=== PATIENT | male | born 1970 | race African-American/Black ===

== ENCOUNTER 2019-01-24 15:06 | Emergency (ER) | payer BC ==
[2019-01-24 15:13] VITALS: BP 177/72
--- NOTE | 2019-01-24 15:38 | ER Document Report ---
HPI - HPI Time Seen by Provider: 01/24/19 15:21 Pain Level: 2 Context: Patient is a 48-year-old male with a history of congestive heart failure, type 2 diabetes, hypertension, high cholesterol, stage III kidney disease, acid reflux who presents to the emergency department with a chief complaint of sore throat and cough. Patient reports for 4 days he has had a minor sore throat that is intermittent. Patient reports yesterday he did develop a productive cough with brown sputum. Patient denies blood in his sputum. Patient denies runny nose or ear pain. Patient reports some sinus pressure. Patient reports intermittent headache. Patient reports his voice sounds hoarse. Patient reports he has not taken any medications [id number] for this. Patient reports he attempted to go to work today but then felt very achy all over. Patient reports he does have high blood pressure is not taking any of his blood pressure medications today. Patient denies fever. - REPRODUCTIVE Reproductive: DENIES: : Past Medical History - General Information source: Patient - Social History Smoking Status: Never Smoker Frequency of alcohol use: None Drug Abuse: None Lives with: Family Family History: None Patient has suicidal ideation: No Patient has homicidal ideation: No - Past Medical History Cardiac Medical History: Reports: Hx Congestive Heart Failure, Hx Hypercholesterolemia, Hx Hypertension Pulmonary Medical History: Reports: None EENT Medical History: Reports: None Neurological Medical History: Reports: Hx Migraine Endocrine Medical History: Reports: Hx Diabetes Mellitus Type 2 Renal/ Medical History: Reports: Hx Renal Insufficiency Malignancy Medical History: Reports None GI Medical History: Reports: Hx Gastroesophageal Reflux Disease Musculoskeletal Medical History: Reports None Skin Medical History: Reports None Psychiatric Medical History: Reports: Hx Bipolar Disorder Traumatic Medical History: Reports: None Infectious Medical History: Reports: None Vertical Provider Document - CONSTITUTIONAL Agree With Documented VS: Yes Exam Limitations: No Limitations General Appearance: No Apparent Distress - HEENT HEENT: Atraumatic, Normal ENT Exam, Normocephalic, PERRLA Notes: Mild tenderness noted to the maxillary and frontal sinuses. Patient's TMs bilaterally are unremarkable without erythema, edema. I was able to easily visualize the TM the landmarks. There is no fluid behind the ear. Patient's airway is patent, no tonsillar hypertrophy. Uvula is midline. Patient does have edematous turbinates bilaterally. No rhinorrhea. - NECK Neck: Normal Inspection Notes: No lymphadenopathy. - RESPIRATORY Respiratory: Breath Sounds Normal, No Respiratory Distress - CARDIOVASCULAR Cardiovascular: Regular Rate, Regular Rhythm - GI/ABDOMEN Gastrointestinal: Abdomen Soft, Abdomen Non-Tender - BACK Back: Normal Inspection - NEURO Level of Consciousness: Awake, Alert, Appropriate - DERM Integumentary: Warm, Dry, No Rash Course - Re-evaluation Re-evalutation: 01/24/19 15:41 Patient is nontoxic-appearing. Patient is not hypoxic or tachycardic or febr ile. Patient is hypertensive at 177/72. Patient reports he has not taken his blood pressure medication today. I informed him when he gets home to take his blood pressure medications. I did inform him that swbu-wpy-snnwgop decongestants do have a tendency to elevate the blood pressure and he does need to take precaution with these medications. - Vital Signs Vital signs: Temp Pulse Resp BP Pulse Ox 97.6 F 91 19 177/72 H 96 01/24/19 15:11 01/24/19 15:11 01/24/19 15:11 01/24/19 15:11 01/24/19 15:11 Discharge - Discharge Clinical Impression: Laryngitis, URI with cough and congestion Condition: Stable Disposition: HOME, SELF-CARE Additional Instructions: Today you are seen in the emergency department for an upper respiratory infection. At this time your physical examination was reassuring and your symptoms are consistent with a viral infection. You do not require an oral antibiotic. You will need to follow-up with your primary care physician for recheck. Please return emergency department if you develop high fever, symptoms that last longer than 10 to 14 days, shortness of breath, severe pain, productive cough, difficulty breathing or swallowing or any other concerning signs or symptoms. You can use fxhx-zuz-tapwnda saline nasal flushes You can also use an cwwt-rvw-fusgced Zyrtec which is an antihistamine. This is usually taken to treat seasonal allergies but may also help your symptoms. Be very careful with certain decongestants as this can elevate your blood pressure. Your blood pressure was elevated today. You have reported not taking your blood pressure medication today. Please take this when you get home. Please drink plenty of fluids to stay hydrated. Upper Respiratory Illness You have a viral infection of the respiratory passages -- a "cold." This common infection causes nasal congestion, drainage, and often sore throat and cough. It is caused by a virus and is highly contagious. The disease usually lasts a week or more, though the worst symptoms are usually over in 3 or 4 days. There is no "cure" for the viral infection -- it must run its course. If there is a complication, such as bacterial infection in the nose, sinuses, middle ear, or bronchial tubes, antibiotics may be required, but antibiotics won't affect the virus. If you smoke, you should STOP!! Drink plenty of fluids. A humidifier may help. An expectorant medication or decongestant may make you more comfortable. Use acetaminophen or ibuprofen for fever or aches. See the doctor if fever persists over two or three days, if there is any significant worsening of your symptoms, or if you simply fail to improve as expected. Laryngitis You have laryngitis. This is an inflammation of the vocal cords which leads to inability to speak normally. Any irritation to the airway can cause laryngitis. Causes include virus infection, smoke inhalation, allergy, or even trauma due to excessive talking or shouting. Rest your voice. Any vibration of the vocal cords increases and prolongs the swelling. Humidity is helpful, especially cool mist. Avoid dust, chemical fumes, and smoke. Avoid decongestants and antihistamines -- these will make you worse. You can expect to recover completely in a few days. See the physician if new symptoms develop, such as high fever, productive cough, shortness of breath, or if you do not improve within a few days. Forms: Return to Work
== END 2019-01-24 15:58 | disposition home or self-care (01) ==
LOC: EDBD → ER 15:06
DX: J04.0 Acute laryngitis (principal); J06.9 Acute upper respiratory infection, unspecified; R05 Cough; R09.81 Nasal congestion; J02.9 Acute pharyngitis, unspecified; R51 Headache; I13.0 Hypertensive heart and chronic kidney disease with heart failure and stage 1 through stage 4 chronic kidney disease, or unspecified chronic kidney disease; E11.22 Type 2 diabetes mellitus with diabetic chronic kidney disease; N18.9 Chronic kidney disease, unspecified; I50.9 Heart failure, unspecified

== ENCOUNTER 2019-03-21 21:06 | Emergency (ER) | payer BC ==
--- NOTE | 2019-03-21 21:42 | ER Document Report ---
ED Medical Screen (RME) - General Chief Complaint: Shortness Of Breath Stated Complaint: CHEST PAIN Time Seen by Provider: 03/21/19 21:36 Mode of Arrival: Wheelchair Information source: Patient Notes: 49-year-old male with history of cardiac disease that was just discharged from [facility] presents with shortness of breath chest tightness left arm pain and vomiting. Reports symptoms started earlier today when he came to [place] to visit his girlfriend. He reports he was so weak and short of breath he could not get out of his car and he vomited outside the parking lot. I have greeted and performed a rapid initial assessment of this patient. A comprehensive ED assessment and evaluation of the patient, analysis of test results and completion of the medical decision making process will be conducted by additional ED providers. Dictation of this chart was performed using voice recognition software; therefore, there may be some unintended grammatical errors. TRAVEL OUTSIDE OF THE [place] IN LAST 30 DAYS: No - Related Data Allergies/Adverse Reactions: levofloxacin [From [employer]] Adverse Reaction (Verified 03/21/19 21:28) joint pain Home Medications: BiDil 20-37.5mg TID. Aspirin 81mg. Carvedilol 12.5mg BID. Colchicine 0.6mg PRN. Farxiga 10mg Daily. Gabapentin 100mg TID. Metolazone 5mg BID. Pancrelipase BID with meals. Protonix 20mg once. Topimarate 50mg BID Past Medical History - Past Medical History Cardiac Medical History: Reports: Hx Congestive Heart Failure, Hx Hypercholesterolemia, Hx Hypertension Neurological Medical History: Reports: Hx Migraine Endocrine Medical History: Reports: Hx Diabetes Mellitus Type 2 Renal/ Medical History: Reports: Hx Renal Insufficiency GI Medical History: Reports: Hx Gastroesophageal Reflux Disease Psychiatric Medical History: Reports: Hx Bipolar Disorder Physical Exam - Vital signs Vitals: Temp Pulse Resp BP Pulse Ox 97.8 F 101 H 22 H 132/56 H 96 03/21/19 21:22 03/21/19 21:22 03/21/19 21:22 03/21/19 21:22 03/21/19 21:22 Course - Vital Signs Vital signs: Temp Pulse Resp BP Pulse Ox 97.8 F 101 H 22 H 132/56 H 96 03/21/19 21:28 03/21/19 21:22 03/21/19 21:28 03/21/19 21:22 03/21/19 21:28
[2019-03-21 22:00] LABS: ABSOLUTE EOSINOPHILS # (AUTO) 0.1 10^3/uL (0.0-0.6); ABSOLUTE LYMPHOCYTES (AUTO) 2.9 10^3/uL (0.5-4.7); ABSOLUTE MONOCYTES (AUTO) 0.9 10^3/uL (0.1-1.4); ABSOLUTE NEUT (AUTO) 5.9 10^3/uL (1.7-8.2); BASOPHILS % (AUTO) 0.5 % (0-2); EOSINOPHILS % (AUTO) 0.5 % (0-6); HEMATOCRIT 45.9 % (37.9-51.0); HEMOGLOBIN 15.1 g/dL (13.5-17.0); LYMPHOCYTES % (AUTO) 29.5 % (13-45); MEAN CORPUSCULAR HEMOGLOBIN 30.1 pg (27.0-33.4); MEAN CORPUSCULAR VOLUME 91 fl (80-97); PLATELET COUNT 228 10^3/uL (150-450); RED BLOOD COUNT 5.04 10^6/uL (4.35-5.55); RED CELL DISTRIBUTION WIDTH 14.4 % (11.5-14.0); SEGMENTED NEUTROPHILS % (AUTO) 60.5 % (42-78); TOTAL CELLS COUNTED % (AUTO) 100 %; WHITE BLOOD COUNT 9.8 10^3/uL (4.0-10.5)
[2019-03-21 22:16] LABS: ALBUMIN 4.3 g/dL (3.5-5.0); ALKALINE PHOSPHATASE 98 U/L (38-126); ANION GAP 13 (5-19); ASPARTATE AMINO TRANSFERASE 22 U/L (17-59); BILIRUBIN,DIRECT 0.1 mg/dL (0.0-0.4); BILIRUBIN,TOTAL 0.5 mg/dL (0.2-1.3); BLOOD UREA NITROGEN 28 mg/dL (7-20); CALCIUM 9.5 mg/dL (8.4-10.2); CARBON DIOXIDE 21 mmol/L (22-30); CHLORIDE 107 mmol/L (98-107); CREATINE KINASE 276 U/L (55-170); POTASSIUM 4.1 mmol/L (3.6-5.0); TOTAL PROTEIN 7.4 g/dL (6.3-8.2)
[2019-03-21 22:26] LABS: GLUCOSE 47 mg/dL (75-110)
--- NOTE | 2019-03-21 22:28 | RADIOLOGY REPORT (SQ) ---
EXAM DESCRIPTION: [facility]: XR CHEST 2 VIEWS Views: 2 CLINICAL HISTORY: 49 years Male, SOB COMPARISON: None. FINDINGS: There is slightly increased densities in the left lower lobe, best seen on lateral view. However, there is no definite consolidation. No pneumothorax or pleural effusion. Cardiomediastinal silhouette is within normal limits. Bony structures are unremarkable for age. IMPRESSION: 1. Slightly increased density in the posterior left lower lobe. This could be an early pneumonia. Please correlate with current clinical symptoms.
--- NOTE | 2019-03-22 00:30 | ER Document Report ---
ED General - General Chief Complaint: Chest Pain Stated Complaint: CHEST PAIN Time Seen by Provider: 03/21/19 21:36 Mode of Arrival: Wheelchair TRAVEL OUTSIDE OF THE [place] IN LAST 30 DAYS: No - HPI Notes: Mr. Acevedo is a 49-year-old male with a chief complaint of nausea, vomiting and chest discomfort. This gentleman was admitted to [facility] in [place] yesterday for evaluation of chest pain. Cardiac work-up was negative. He is known to have a past history of coronary disease with a heart catheterization approximately 1 year ago showing noncritical disease with recommendation for medical management. Patient was advised that he had not had an acute GA but was told his blood pressure was poorly controlled and he made some adjustment in medications. He was discharged this morning from that facility. He decided to drive to [place] to visit with a friend and while he was in town this afternoon he began to feel nauseated. He decided to come back to the hospital and when he arrived in the parking lot here he was extremely nauseated and vomited several times. He thereafter had some sharp central chest pain without radiation. This subsequently resolved and he is no longer experiencing any pain, nausea or vomiting. He denies fever. Slight nonproductive cough. Patient is a type II diabetic taking an oral agent. History of hypertension. History of hyperlipidemia. History of gout. Hx. of chronic Migraine. Patient has had a past cholecystectomy. Current medications include: Carvedilol 12.5 mg twice daily Farxiga 10 mg daily Colchicine 0.6 mg as needed gout symptoms Gabapentin 100 mg 3 times daily Metolazone 5 mg twice daily Pancrelipase 2 capsules 3 times daily with food Protonix 20 mg daily Topiramate 50 mg 3 times daily - Related Data Allergies/Adverse Reactions: levofloxacin [From [employer]aquin] Adverse Reaction (Verified 03/21/19 21:28) joint pain Home Medications: BiDil 20-37.5mg TID. Aspirin 81mg. Carvedilol 12.5mg BID. Colchicine 0.6mg PRN. Farxiga 10mg Daily. Gabapentin 100mg TID. Metolazone 5mg BID. Pancrelipase BID with meals. Protonix 20mg once. Topimarate 50mg BID Past Medical History - General Information source: Patient - Social History Smoking Status: Never Smoker Family History: None Patient has suicidal ideation: No Patient has homicidal ideation: No - Past Medical History Cardiac Medical History: Reports: Hx Congestive Heart Failure, Hx Hypercholesterolemia, Hx Hypertension Neurological Medical History: Reports: Hx Migraine Endocrine Medical History: Reports: Hx Diabetes Mellitus Type 2 Renal/ Medical History: Reports: Hx Renal Insufficiency GI Medical History: Reports: Hx Gastroesophageal Reflux Disease Psychiatric Medical History: Reports: Hx Bipolar Disorder Review of Systems - Review of Systems Notes: Constitutional: Negative for fever. HENT: Negative for sore throat. Eyes: Negative for visual changes. Cardiovascular: As per HPI. Respiratory: Negative for shortness of breath. Gastrointestinal: As per HPI. Genitourinary: Negative for dysuria. Musculoskeletal: Negative for back pain. Skin: Negative for rash. Neurological: Negative for headaches, focal weakness or numbness. 10 point ROS negative except as marked above and in HPI. Physical Exam - Vital signs Vitals: Temp Pulse Resp BP Pulse Ox 97.8 F 101 H 22 H 132/56 H 96 03/21/19 21:22 03/21/19 21:22 03/21/19 21:22 03/21/19 21:22 03/21/19 21:22 - Notes Notes: GENERAL: Well-developed well-nourished appearing in no acute distress. SKIN: Good turgor no rashes. HEAD: Normocephalic atraumatic. EYES: PERRLA. Conjunctivae and sclerae clear. EARS: CANALS AND TMS CLEAR. NOSE: CLEAR. MOUTH: Moist mucosa. Good dentition. No stridor or edema. No drooling. NECK: Supple. No masses or thyromegaly. No adenopathy. Carotids 2+ without bruits. No JVD. BACK: Symmetrical without tenderness. CHEST: Respirations unlabored. Breath sounds clear and symmetrical. HEART: Regular rhythm. No murmur gallop or rub. ABDOMEN: Soft nontender without masses, organomegaly or rebound. Bowel sounds normally active. No bruits. GENITALIA: Deferred. EXTREMITIES: 1+ brawny edema both lower legs which patient says is actually better than his usual baseline.. No calf tenderness. Cap refill less than 1.5 seconds. Dorsalis pedis and posterior tibial pulses 3+ and symmetrical. NEUROLOGICAL: GCS 15. Alert and oriented x3. Normal gait. Fluent speech. C ranial nerves II through XII intact. Sensorimotor and cerebellar normal. Normal tone. Course - Re-evaluation Re-evalutation: 03/22/19 02:38 Nausea vomiting and chest pain had resolved by the time I saw this gentleman. His EKG shows LVH but no acute ST changes. He is in a normal sinus rhythm. Second EKG was subsequently obtained 3 hours later and there was no interval change. He has had 2- troponins 3 hours apart. He is totally asymptomatic at this time. I think he is very stable for outpatient follow-up with his primary care doctor tomorrow. I am going to send him home with some Zofran for as needed use. - Vital Signs Vital signs: Temp Pulse Resp BP Pulse Ox 97.8 F 101 H 23 H 143/91 H 98 03/21/19 21:28 03/21/19 21:22 03/21/19 23:31 03/21/19 23:31 03/21/19 23:31 - Laboratory Result Diagrams: 03/21/19 21:45 03/21/19 21:45 Laboratory results interpreted by me: 03/21/19 03/21/19 21:45 21:45 RDW 14.4 H Carbon Dioxide 21 L BUN 28 H Creatinine 2.05 H Est GFR ( Amer) 42 L Est GFR (MDRD) Non-Af 35 L Glucose 47 L Creatine Kinase 276 H - EKG Interpretation by Me EKG shows normal: Sinus rhythm, Himrod Rate: Normal Voltage: Consistant with LVH Discharge - Discharge Clinical Impression: Vomiting Qualifiers: Vomiting type: unspecified Vomiting Intractability: non-intractable Nausea presence: with nausea Qualified Code(s): R11.2 - Nausea with vomiting, unspecified Chest pain Qualifiers: Chest pain type: unspecified Qualified Code(s): R07.9 - Chest pain, unspecified Condition: Stable Disposition: HOME, SELF-CARE Instructions: Vomiting ([facility]), Chest Pain of Unclear Cause ([facility]) Additional Instructions: See your doctor tomorrow. Return here as needed for new or worsening symptoms. Prescriptions: Ondansetron [Zofran Odt 4 mg Tablet] 1 - 2 tab PO Q4H PRN #15 tab.rapdis PRN Reason: For Nausea/Vomiting
[2019-03-22 02:48] VITALS: BP 131/88
--- NOTE | 2019-03-22 07:42 | EKG REPORT ---
SEVERITY:- ABNORMAL ECG - SINUS TACHYCARDIA LAD, CONSIDER LEFT ANTERIOR FASCICULAR BLOCK PROBABLE ANTEROSEPTAL INFARCT, OLD : Confirmed by: Hever Anderson MD 22-Mar-2019 07:42:07
--- NOTE | 2019-03-22 07:42 | EKG REPORT ---
SEVERITY:- ABNORMAL ECG - SINUS RHYTHM FIRST DEGREE AV BLOCK NONSPECIFIC IVCD WITH LAD EARLY PRECORDIAL TRANSITION, CONSIDER OLD TRUE POST WALL WA : Confirmed by: Hveer Anderson MD 22-Mar-2019 07:41:42
== END 2019-03-22 02:58 | disposition home or self-care (01) ==
LOC: ER 21:06
DX: R11.2 Nausea with vomiting, unspecified (principal); R07.9 Chest pain, unspecified; I25.10 Atherosclerotic heart disease of native coronary artery without angina pectoris; R05 Cough; E11.9 Type 2 diabetes mellitus without complications; Z79.84 Long term (current) use of oral hypoglycemic drugs; I50.9 Heart failure, unspecified; I11.0 Hypertensive heart disease with heart failure; Z79.899 Other long term (current) drug therapy
CPT/HCPCS: 36415; 71046; 80053; 82550; 82962; 83690; 83880; 84484; 85025; 85379; 93005; 93010; 99285

== ENCOUNTER 2019-06-16 17:55 | Emergency (ER) | payer BC ==
[2019-06-16] MEDS ORDERED: IBUPROFEN 600 MG TABLET PO ONE (18:21)
--- NOTE | 2019-06-16 18:23 | ER Document Report ---
HPI - HPI Time Seen by Provider: 06/16/19 18:18 Notes: CHIEF COMPLAINT: Sore throat, congestion, fever for 1 day HPI: 49-year-old male who works at [employer] in [place] presenting with sore throat congestion and fever for 1 day. Has had a slight cough. No shortness of breath. Complains of myalgia and body ache. Patient states he did get a flu shot this year. ROS: See HPI - all other systems were reviewed and are otherwise negative Constitutional: + fever Eyes: no drainage, no blurred vision ENT: + runny nose, + sore throat Cardiovascular: no chest pain Resp: no SOB, + cough GI: no vomiting, no diarrhea, no abdominal pain : no dysuria Integumentary: no rash Allergy: no hives Musculoskeletal: no extremity pain or swelling Neurological: no numbness/tingling, no weakness MEDICATIONS: I agree with the patient medications as charted by the RN. ALLERGIES: I agree with the allergies as charted by the RN. PAST MEDICAL HISTORY/PAST SURGICAL HISTORY: Reviewed and agree as charted by RN. SOCIAL HISTORY: Reviewed and agree as charted by RN. FAMILY HISTORY: No significant familial comorbid conditions directly related to patient complaint EXAM: Reviewed vital signs as charted by RN. CONSTITUTIONAL: Alert and oriented and responds appropriately to questions. W ell-appearing; well-nourished, mild distress secondary to cough and discomfort HEAD: Normocephalic; atraumatic EYES: PERRL; Conjunctivae clear, sclerae non-icteric ENT: normal nose; positive clear rhinorrhea; moist mucous membranes; very mild pharyngeal erythema, no uvula edema or deviation, no tonsillar hypertrophy, phonation normal NECK: Supple without meningismus; non-tender; no cervical lymphadenopathy, no masses CARD: RRR; no murmurs, no clicks, no rubs, no gallops; symmetric distal pulses RESP: Normal chest excursion without splinting or tachypnea; breath sounds clear and equal bilaterally; no wheezes, no rhonchi, no rales, pulse oximetry 98% on room air not hypoxic ABD/GI: Normal bowel sounds; non-distended; soft, non-tender, no rebound, no guarding; no palpable organomegaly or masses. BACK: The back appears normal and is non-tender to palpation, there is no CVA tenderness EXT: Normal ROM in all joints; non-tender to palpation; no cyanosis, no effusions, no edema SKIN: Normal color for age and race; warm; dry; good turgor; no acute lesions noted NEURO: Moves all extremities equally; Motor and sensory function intact PSYCH: The patient's mood and manner are appropriate. Grooming and personal hygiene are appropriate. MDM: 49-year-old male with flulike symptoms. Will check flu and rapid strep, differential would also include a viral process. Low suspicion for pneumonia or infiltrate given the 24-hour history of symptoms - REPRODUCTIVE Reproductive: DENIES: : Past Medical History - Social History Smoking Status: Unknown if Ever Smoked Family History: None - Past Medical History Cardiac Medical History: Reports: Hx Congestive Heart Failure, Hx Hypercholesterolemia, Hx Hypertension Neurological Medical History: Reports: Hx Migraine Endocrine Medical History: Reports: Hx Diabetes Mellitus Type 2 Renal/ Medical History: Reports: Hx Renal Insufficiency GI Medical History: Reports: Hx Gastroesophageal Reflux Disease Psychiatric Medical History: Reports: Hx Bipolar Disorder Vertical Provider Document - INFECTION CONTROL TRAVEL OUTSIDE OF THE [place] IN LAST 30 DAYS: No Course - Re-evaluation Re-evalutation: 06/16/19 19:38 Strep and influenza swab are negative, symptomatic treatment follow-up PCP - Vital Signs Vital signs: Temp Pulse Resp BP Pulse Ox 101.3 F H 96 22 H 176/78 H 93 06/16/19 18:04 06/16/19 18:04 06/16/19 18:04 06/16/19 18:04 06/16/19 18:04 Discharge - Discharge Clinical Impression: Fever in adult, Influenza-like illness Condition: Stable Disposition: HOME, SELF-CARE Additional Instructions: 1. hydrate well at home with juices and water 2. treat fevers and body aches with Motrin and Tylenol 3. out of work for the next 2 days 4. follow up recheck with your PCP in 3-4 days, call for appt. 5. return to the ED for worsening condition, your flu test and strep test today were both negative 6. Medications as prescribed, use the inhaler 2 puffs every 4 hours as needed for cough or shortness of breath Prescriptions: Guaifenesin/Dextromethorphan [Mucinex Dm ER 600-30 mg Tablet] 1 each PO BID #20 tab.er.12h Albuterol Sulfate [Proair HFA Inhalation Aerosol 8.5 gm MDI] 2 puff IH Q4H PRN #1 mdi PRN Reason: Diclofenac Sodium [Voltaren 50 Mg Tablet.Dr] 50 mg PO BID #20 tablet.dr Forms: Return to Work Referrals: STEVE CHAPA MD [Primary Care Provider] - Follow up as needed
[2019-06-16 19:22] LABS: A TYPE INFLUENZA AG NEGATIVE (NEGATIVE); B INFLUENZA AG NEGATIVE (NEGATIVE)
[2019-06-16 20:08] VITALS: BP 147/97
== END 2019-06-16 20:11 | disposition home or self-care (01) ==
LOC: ER 17:55
DX: J11.1 Influenza due to unidentified influenza virus with other respiratory manifestations (principal); R50.9 Fever, unspecified; R09.81 Nasal congestion; R05 Cough; M79.10 Myalgia, unspecified site; R09.89 Other specified symptoms and signs involving the circulatory and respiratory systems; I50.9 Heart failure, unspecified; I11.0 Hypertensive heart disease with heart failure; E11.9 Type 2 diabetes mellitus without complications
CPT/HCPCS: 87070; 87804; 87880; 99283